=== PATIENT | female | born 1990 | race Caucasian/White ===

== ENCOUNTER 2018-06-17 22:03 | Emergency (ER) | payer SELFPAY ==
[2018-06-17] MEDS ORDERED: FAMOTIDINE 20 MG TABLET PO ONE (23:16)
[2018-06-17] MEDS ORDERED: IBUPROFEN 800 MG TABLET PO ONE (23:16)
[2018-06-17] MEDS ORDERED: DEXAMETHASONE SOD PHOS INJ 10 MG/1 ML VIAL IM ONE (23:16)
[2018-06-17] MEDS ORDERED: CEPHALEXIN 500 MG CAPSULE PO ONE (23:16)
--- NOTE | 2018-06-17 23:21 | ER Document Report ---
ED Skin Rash/Insect Bite/Abscs - General Chief Complaint: Skin Problem Stated Complaint: INFECTION,DEHYDRATION,RAZOR BURN,CHEST PAIN Time Seen by Provider: 06/17/18 23:02 Mode of Arrival: Ambulatory Information source: Patient Notes: 27-year-old female presents to ED for complaint of razor burn to her scalp. She states she shaved last Saturday using min shaving cream and after shave lotion. She states the rash started the next day. She states she has had hot and cold flashes since then but has not had a fever. She states she has had this once before and she thought you done a better job this time but the pain has become worse and worse. She states she shaved again the second time and the rash just got worse. Patient is alert and oriented respirations regular and unlabored afebrile pupils equal and react to light walking with a even steady gait. TRAVEL OUTSIDE OF THE [place] IN LAST 30 DAYS: No - HPI Patient complains to provider of: Skin rash/lesion Onset: Last week Onset/Duration: Gradual, Worse Quality of pain: Burning Severity: Severe Pain Level: 5 Skin Character: Macules, Tenderness, Thickening Quality of rash: Itchy, Painful Identify cause: Yes - Shave in her head Exacerbated by: Denies Relieved by: Denies Similar symptoms previously: Yes Recently seen / treated by doctor: No - Related Data Allergies/Adverse Reactions: No Known Allergies Allergy (Unverified 06/17/18 22:24) Past Medical History - General Information source: Patient - Social History Smoking Status: Never Smoker Cigarette use (# per day): No Chew tobacco use (# tins/day): No Smoking Education Provided: No Frequency of alcohol use: None Drug Abuse: None 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 Lives with: Friend Family History: Reviewed & Not Pertinent Patient has suicidal ideation: No Patient has homicidal ideation: No - Past Medical History Cardiac Medical History: Reports: None Pulmonary Medical History: Reports: None EENT Medical History: Reports: None Neurological Medical History: Reports: None Endocrine Medical History: Reports: None Renal/ Medical History: Reports: None Malignancy Medical History: Reports: None GI Medical History: Reports: None Musculoskeletal Medical History: Reports None Skin Medical History: Reports Hx Cellulitis Psychiatric Medical History: Reports: None Traumatic Medical History: Reports: None Infectious Medical History: Reports: None Surgical Hx: Negative Past Surgical History: Reports: None Review of Systems - Review of Systems Constitutional: No symptoms reported EENT: No symptoms reported Cardiovascular: No symptoms reported Respiratory: No symptoms reported Gastrointestinal: No symptoms reported Genitourinary: No symptoms reported Female Genitourinary: No symptoms reported Musculoskeletal: No symptoms reported Skin: Rash - Very red painful rash to the top of her scalp for the last week after shaving her scalp. Hematologic/Lymphatic: No symptoms reported Neurological/Psychological: No symptoms reported -: Yes All other systems reviewed and negative Physical Exam - Vital signs Vitals: Temp Pulse Resp BP Pulse Ox 98.8 F 86 16 110/65 100 06/17/18 22:28 06/17/18 22:28 06/17/18 22:28 06/17/18 22:28 06/17/18 22:28 Interpretation: Normal - General General appearance: Appears well, Alert - HEENT Head: Atraumatic, Tenderness - Tender red painful rash to the scalp. Eyes: Normal Pupils: PERRL Ears: Normal External canal: Normal Tympanic membrane: Normal Sinus: Normal Nasal: Swelling, Clear rhinorrhea Mouth/Lips: Normal Pharynx: Post nasal drainage Neck: Normal - Respiratory Respiratory status: No respiratory distress Chest status: Nontender Breath sounds: Normal Chest palpation: Normal - Cardiovascular Rhythm: Regular Heart sounds: Normal auscultation Murmur: No - Abdominal Inspection: Normal Distension: No distension Bowel sounds: Normal Tenderness: Nontender Organomegaly: No organomegaly - Back Back: Normal, Nontender - Extremities General upper extremity: Normal inspection, Nontender, Normal color, Normal ROM , Normal temperature General lower extremity: Normal inspection, Nontender, Normal color, Normal ROM , Normal temperature, Normal weight bearing. No: Chantal's sign - Neurological Neuro grossly intact: Yes Cognition: Normal Orientation: AAOx4 [place] Coma Scale Eye Opening: Spontaneous [place] Coma Scale Verbal: Oriented [place] Coma Scale Motor: Obeys Commands [place] Coma Scale Total: 15 Speech: Normal Motor strength normal: LUE, RUE, LLE, RLE Sensory: Normal - Psychological Associated symptoms: Normal affect, Normal mood - Skin Skin Temperature: Warm Skin Moisture: Dry Skin Color: Normal Skin irregularity: Rash Location of irregularity: Scalp Character of irregularity: Maculopapular Irregularity with: Swelling, Tenderness Course - Vital Signs Vital signs: Temp Pulse Resp BP Pulse Ox 99.6 F 95 20 124/77 99 06/17/18 23:37 06/17/18 23:37 06/17/18 23:37 06/17/18 23:37 06/17/18 23:37 Discharge - Discharge Clinical Impression: Rash and nonspecific skin eruption Condition: Stable Disposition: HOME, SELF-CARE Instructions: Family Physicians / Practices Additional Instructions: You have a rash due to shaving your head due to skin irritation from shaving your head. You also have some dermatitis from the razor burn. I have treated you with allergy medicine and with antibiotics. CELLULITIS: You have an infection of your skin and underlying soft tissues called cellulitis. This is due to bacteria, which can enter through any break in the skin, or even through an irritated hair follicle. Untreated, cellulitis will usually worsen. Antibiotics are required. Usually, warm packs or warm soaks, and elevation of the infected area are recommended. You should start getting better within 24 to 36 hours. Most infections respond quickly to the right medication. Follow-up care is important, however, to check for abscess (boil) formation, unsuspected foreign body, or resistant infection. If you develop fever, chills, or if the area of infection is becoming rapidly more swollen or painful, call the doctor at once. DOXYCYCLINE: Doxycycline (Vibramycin, Doryx) is an antibiotic of the tetracycline family. This type of drug is useful for infections of the respiratory tract and genital tract, and is sometimes used for intestinal infections. Unlike most tetracyclines, doxycycline can be taken with food. It is longer acting, and (usually) less prone to side effects than regular tetracycline. Tetracycline antibiotics can stain immature teeth and SHOULD NOT BE TAKEN BY CHILDREN, NURSING MOTHERS, OR WOMEN. Tetracyclines can make you more prone to sunburn. Abdominal cramping, nausea, and diarrhea are occasional side effects. Women may experience vaginal yeast infections. Call the doctor at once if you develop hives, itching, shortness of breath , or lightheadedness. Allergic Contact Dermatitis You have a local allergic reaction, called contact dermatitis. This an allergy to something in contact with your skin. Poison jory, jewelry, soaps, perfumes, and chemicals are common causes. Typically, an itchy rash develops a few days after the exposure. If the reaction is severe, blisters may develop. Two to three weeks may be required for healing. Generally, treatment consists of: (1) a thorough washing with soap to remove the offending substance, (2) application of a cortisone cream, and (3) antihistamines for itching. If the reaction is particularly severe, further measures may be required. These can include soaking in epsom salts or Wes's solution, and oral cortisone medications. Call the doctor if the rash worsens despite treatment, or if signs of infection occur such as spreading redness, red streaks, swollen glands, swelling , or fever. STEROID MEDICATION INJECTION: You have been given an injection of medicine of the cortisone/steroid class. This medication is used to control inflammation or allergy. It is often continued as a pill for a short period of time, until the acute process subsides. There are usually no side effects from short-term use of cortisone-like medications. Some persons feel an increased sense of well-being and are not sleepy at bedtime. Long-term use of cortisone medications is best avoided, unless required for a severe condition. If your condition does not remit, or relapses after the course of corticosteroid medication, you should consult your physician. ACID-SUPPRESSING MEDICATION: You have a prescription for medicine which reduces the stomach's secretion of acid. Examples include Zantac, Tagament, and Pepcid. These drugs are often used to allow healing of ulcers or esophagitis. They may be needed to prevent recurrence of ulcers in some patients, or to prevent damage from acid reflux in the esophagus. Take all medication as prescribed, even after the pain is gone. Regular antacids may be added as needed if you have symptoms while taking this medicine. These medications sometimes are prescribed for allergic reactions because they have anti-histaminic effects and relieve the rash and itching of the reaction. There are usually no side effects from this medication. But, in rare cases and particularly in the elderly, serious problems can occur. Contact your doctor if there is fever, rash, hallucinations, confusion, or unusual bruising. Contact your doctor at once if you develop lightheadedness, black or bloody stool, or bloody vomitus. USE OF DIPHENHYDRAMINE: The use of diphenhydramine (Benadryl) has been recommended to control allergic symptoms. The 25 mg strength is available over- the-counter, as well as the elixir. This antihistamine is used for many symptoms. It's useful for itching, watering eyes and nose, allergic swelling, hives, and insect stings. The medication can be repeated four times daily. Age Elixir (12.5 mg/tsp) 25 mg pill 2-3 yr 1/2 tsp 4-8 yr 1 tsp 9-14 yr 2 tsp one tab adult 1-2 tabs Antihistamines may cause drowsiness, especially with the first dose. Do not operate machinery or drive while under the effects of the medication. Do not combine the medication with alcohol, or with any other medication without talking to your doctor. FOLLOW-UP CARE: If you have been referred to a physician for follow-up care, call the physician s office for an appointment as you were instructed or within the next two days. If you experience worsening or a significant change in your symptoms, notify the physician immediately or return to the Emergency Department at any time for re-evaluation. Prescriptions: Doxycycline Hyclate 100 mg PO BID #14 capsule Famotidine [Pepcid 20 mg Tablet] 20 mg PO BID #12 tablet Forms: Return to Work
[2018-06-17] MEDS ORDERED: DOXYCYCLINE HYCLATE 100 MG TABLET PO ONE (23:28)
[2018-06-17 23:41] VITALS: BP 124/77
== END 2018-06-17 23:42 | disposition home or self-care (01) ==
LOC: ER 22:03
DX: R21 Rash and other nonspecific skin eruption (principal); J34.89 Other specified disorders of nose and nasal sinuses; R09.82 Postnasal drip
CPT/HCPCS: 99283; 96372; J1100